=== PATIENT | male | born 1980 | race Caucasian/White ===

== ENCOUNTER 2018-01-07 23:46 | Emergency (ER) | payer OTHER ==
[~2018-01-07] VITALS: Ht 185.4 cm; Wt 104.3 kg
[~2018-01-07 23:46] MED LIST: PREDNISONE10 MG PO
[2018-01-08 00:31] VITALS: BP 149/78
== END 2018-01-07 23:59 | disposition admitted as inpatient to this hospital (09) ==
LOC: ERH 23:46
DX: F99 Mental disorder, not otherwise specified (principal)